=== PATIENT | male | born 1955 | race Caucasian/White ===

== ENCOUNTER 2021-01-18 09:37 | Emergency (ER) | payer OTHER ==
--- NOTE | 2021-01-18 10:09 | ED Physician Documentation ---
PD HPI UPPER EXT INJURY - Stated complaint Stated Complaint: LT SHOULDER PX - Chief complaint Chief Complaint: Ext Problem - History obtained from History obtained from: Patient - Additonal information Additional information: He has had 2 months of worsening left shoulder pain. He may have fallen before it started he does not really remember. It seemed to get worse when he got his Covid shot and expected it would be transient but it has been persistent since then, almost 2 months ago. Pain is worse at night and hurts to move in certain directions. He is right-handed though. Review of Systems Constitutional: denies: Fever, Chills Nose: denies: Rhinorrhea / runny nose, Congestion Throat: denies: Sore throat Cardiac: denies: Chest pain / pressure, Palpitations Respiratory: denies: Dyspnea, Cough PD PAST MEDICAL HISTORY - Present Medications Home Medications: Ambulatory Orders Medication Instructions Recorded Confirmed Apixaban [Eliquis] 0 mg BID 01/18/21 01/18/21 Celecoxib [CeleBREX] 100 mg PO DAILY 01/18/21 01/18/21 Cholecalciferol [Vitamin D3] 1,000 unit DAILY 01/18/21 01/18/21 HYDROcod/ACETAM 5/325 [[facility] 5/325] 1 - 2 tab PO Q6H PRN #15 tablet 01/18/21 Isosorbide Mononitrate [Isosorbide 1 tab DAILY 01/18/21 01/18/21 Mononitrate ER] Lisinopril [Zestril] 20 mg PO DAILY 01/18/21 01/18/21 Metoprolol Succinate [Toprol Xl] 100 mg PO DAILY 01/18/21 01/18/21 Omeprazole 40 mg PO DAILY 01/18/21 01/18/21 Rosuvastatin Calcium [Crestor] 40 mg PO DAILY 01/18/21 01/18/21 traZODone [Desyrel] 50 mg DAILY 01/18/21 01/18/21 - Allergies Allergies/Adverse Reactions: Allergies Allergy/AdvReac Type Severity Reaction Status Date / Time No Known Drug Allergies Allergy Verified 01/18/21 09:45 PD ED PE NORMAL - Vitals Vital signs reviewed: Yes - General General: Alert and oriented X 3, No acute distress - HEENT HEENT: PERRL, EOMI - Neck Neck: No bony TTP - Extremities Extremities: Other (Left shoulder is nontender, he can only abduct to about 80 degrees before significant pain. He has pain with forced external rotation and with supraspinatus testing. No deformity or redness.) - Neuro Neuro: Alert and oriented X 3, Normal speech Results - Vitals Vitals: Vital Signs - 24 hr 01/18/21 09:42 Temperature 36.4 C L Heart Rate 69 Respiratory 16 Rate Blood Pressure 135/78 H O2 Saturation 97 Oxygen O2 Source Room air - Rads (name of study) Left shoulder x-ray Radiology: EMP read contemporaneously (Calcific tendinitis of the rotator cuff, old clavicular fracture.) PD MEDICAL DECISION MAKING - ED course ED course: 65-year-old gentleman with apparent rotator cuff injury or arthropathy of the left shoulder. He has a sling at home and was given exercises to do at home to prevent frozen shoulder. I am prescribing a short course of short-acting opioid pain medication for this patient. I have reviewed the patients [employer] and no concerning findings were noted. I have discussed that the opioids are for short term therapy only, and will not be refilled from the ED. Departure - Departure Disposition: Home, Self Care Clinical Impression: Rotator cuff arthropathy of left shoulder Condition: Good Instructions: Exercise Shoulder Pendulum, ED Tendinitis Rotator Cuff Follow-Up: [facility] [Provider Group] Prescriptions: HYDROcod/ACETAM 5/325 [[facility] 5/325] 1 - 2 tab PO Q6H PRN #15 tablet PRN Reason: Pain Comments: You can wear the sling as needed, but you need to come out of it a few times a day to do range of motion exercises. Return for new or worsening symptoms. Follow-up with your orthopedic clinic, call for an appointment. I am prescribing a short course of narcotic pain medication for you. These are potentially dangerous and addictive medications that should be used carefully. These medications may constipate you. Take an axmf-dtr-yidowsd stool softener (docusate) twice daily with plenty of water while taking these medications. If you go 24 hours without a bowel movement, take [id number] miralax, per package instructions. Do not drink or drive while taking these medications. If you received narcotic or sedating medications while in the emergency depar tment, do not drive for 24 hours. Store this medication in a safe, secure place and out of reach of children. It is a violation of federal law to give or sell this medication to another person or to use in a manner other than prescribed. The ED will not refill narcotic prescriptions, including prescriptions lost or stolen. To dispose of unwanted medications: 1. [facility] [address] in [place] has a medication drop box. They accept prescription medications (in pill form) Saturday through Saturday 9:00 a.m. to 5:00 p.m. 2. [facility] accepts prescription medications (in pill form only) for disposal year round. Call for more information. 3. Contact the [facility] for the next [facility] sponsored prescription drug collection event. , [phone], or [phone]; Note that many narcotic pain relievers also contain Tylenol/acetaminophen. Please ensure that your total dose of acetaminophen from all sources does not exceed 3 g (3000 mg) per day.
--- NOTE | 2021-01-18 10:35 | XRAY Report ---
PROCEDURE: Shoulder 3 View LT INDICATIONS: shoulder pain/injury TECHNIQUE: 3 views of the shoulder were acquired. COMPARISON: None. FINDINGS: Bones: There is a old distal clavicular shaft fracture. No acute fractures or dislocations. No susp icious bony lesions. Visualized ribs appear intact. Soft tissues: Calcific density over the humeral head suggests rotator cuff calcific tendinitis. IMPRESSION: 1. No acute fracture or dislocation. 2. Old left distal clavicular shaft fracture. 3. Rotator cuff calcific tendinitis.. Reviewed by: Funmilayo Perea MD on 01/18/2021 10:33 AM PDT Approved by: Funmilayo Perea MD on 01/18/2021 10:33 AM PDT Station ID: [id number]
[2021-01-18 10:58] VITALS: BP 107/59
== END 2021-01-18 11:00 | disposition home or self-care (01) ==
LOC: ED 09:37
DX: M12.812 Other specific arthropathies, not elsewhere classified, left shoulder (principal)
CPT/HCPCS: 99283; 99284

== ENCOUNTER 2021-03-16 11:15 | Outpatient (CLI) | payer OTHER ==
--- NOTE | 2021-03-16 17:08 | XRAY Report ---
PROCEDURE: Shoulder 3 View LT INDICATIONS: L SHOULDER PX TECHNIQUE: 4 views of the shoulder were acquired. COMPARISON: None. FINDINGS: Bones: No acute fractures or dislocations. Old healed mid to distal left clavicular shaft fracture i s seen. Moderate acromioclavicular joint osteoarthritic changes are noted. Mild to moderate glenohum eral joint osteophytic changes also seen. No suspicious bony lesions. Visualized ribs appear intact. Soft tissues: Small calcifications are noted adjacent to greater tuberosity of humeral head suggestiv e of calcific tendinitis. IMPRESSION: 1. No acute shoulder fracture or dislocation. Old healed mid to distal left clavicular shaft fracture . 2. 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 3. Suggestion of calcific tendinitis involving distal rotator cuff tendons. Reviewed by: Aguilar Last MD on 03/16/2021 5:07 PM PDT Approved by: Aguilar Last MD on 03/16/2021 5:07 PM PDT Station ID: [id number]
== END 2021-03-16 23:59 | disposition home or self-care (01) ==
LOC: DI.N 11:15
PROVIDERS: ATTEND Physician Assistant
DX: S42.002D Fracture of unspecified part of left clavicle, subsequent encounter for fracture with routine healing (principal); M19.012 Primary osteoarthritis, left shoulder; R93.6 Abnormal findings on diagnostic imaging of limbs; R93.89 Abnormal findings on diagnostic imaging of other specified body structures

== ENCOUNTER 2021-04-10 14:11 | Outpatient (CLI) | payer OTHER ==
--- NOTE | 2021-04-11 09:26 | MRI Report ---
PROCEDURE: Shoulder LT W/O INDICATIONS: INJURY OF MUSCLE/TENDON OF LT ROTATOR CUFF TECHNIQUE: Noncontrast oblique coronal T2 fast spin echo with fat saturation, oblique sagittal T1 spin echo and T2 fast spin echo with fat saturation, axial T1 spin echo and T2 fast spin echo with fat saturation t hrough the shoulder. COMPARISON: X-ray left shoulder, 03/16/2021. FINDINGS: Image quality: There are motion artifacts. Rotator cuff: There is partial-thickness tear of the supraspinatus and infraspinatus tendons involvin g both articular and bursal surface. There is subscapularis tendinitis. No rotator cuff muscle atrop hy on sagittal images. Bones and bursae: There is an old left ventricular shaft fracture. No bone marrow contusions or fract ures. Moderate acromioclavicular and glenohumeral joint degeneration. The acromion demonstrates conv entional anatomy, without an os acromiale. Small acromioclavicular and glenohumeral joint effusions. There is a small amount of subcoracoid fluid consistent with bursitis. Capsule and soft tissues: Degenerative labral fraying. In the absence of intra-articular contrast, th e glenohumeral ligaments appear intact. The long head of the biceps tendon demonstrates normal locat ion and morphology. The rotator interval appears normal, without fibrosis. The coracohumeral ligame nt is normal in thickness. IMPRESSION: 1. Partial-thickness tear of the supraspinatus and infraspinatus tendons. 2. Subscapularis tendinitis. 3. Moderate acromioclavicular and glenohumeral joint degeneration. 4. Mild subcoracoid bursitis. 5. Degenerative labral fraying. 6. Old healed clavicular shaft fracture. Reviewed by: Funmilayo Perea MD on 04/11/2021 9:25 AM PDT Approved by: Funmilayo Perea MD on 04/11/2021 9:25 AM PDT Station ID: [id number]
== END 2021-04-10 14:12 | disposition home or self-care (01) ==
LOC: DI 14:11
PROVIDERS: ATTEND Physician Assistant
DX: M75.112 Incomplete rotator cuff tear or rupture of left shoulder, not specified as traumatic (principal); M75.82 Other shoulder lesions, left shoulder; M19.012 Primary osteoarthritis, left shoulder; M75.52 Bursitis of left shoulder; S42.022D Displaced fracture of shaft of left clavicle, subsequent encounter for fracture with routine healing

== ENCOUNTER 2023-01-24 14:26 | Emergency (ER) | payer MEDICARE, OTHER ==
[2023-01-24] MEDS ORDERED: TETANUS/DIPHTHERIA/PERTUSSIS 0.5 ML SYRINGE IM ONE (14:46)
[2023-01-24 14:47] VITALS: BP 130/85
[2023-01-24] MEDS ORDERED: lidocaine 1% 20 ML MDV SUBQ STA (14:50)
--- OUTSIDE RECORDS SUMMARY | 2023-01-24 15:14 | EXTERNAL MEDICAL SUMMARY RPT | Continuity of Care Document ---
Author Name Unknown Address [address] [place] [address] Phone Organization [facility] Address [address] [place] [address] Phone Care Team Providers Care Adjunct Instructor In Economics Name Role Phone Robert Holliday Unavailable Unavailable Medications date description facility 2022-10-30 00:00 [facility] 2022-10-30 00:00 [facility] Results/Labs test date author facility value unit interpretation Result panel 1 (unknown) (no date) (unknown) (unknown) (no value) (units unknown) (unknown) (unknown) (no date) (unknown) (unknown) 10/27/18 [Hist ory Confirmed 10/30/22] (units unknown) (unknown) (unknown) (no date) (unknown) (unknown) 10/30/22 (units unknown) (unknown) (unknown) (no date) (unknown) (unknown) 10/30/22] (units unknown) (unknown) (unknown) (no date) (unknown) (unknown) 01/26/21 [Hist ory Confirmed 10/30/22] (units unknown) (unknown) (unknown) (no date) (unknown) (unknown) 05/13/18 [Hist ory Confirmed 10/30/22] (units unknown) (unknown) (unknown) (no date) (unknown) (unknown) [id number] (units unknown) (unknown) (unknown) (no date) (unknown) (unknown) AAA (abdominal aortic aneurysm) (units unknown) (unknown) (unknown) (no date) (unknown) (unknown) Age/Sex: 67 / M Date of Service: (units unknown) (unknown) (unknown) (no date) (unknown) (unknown) Allergies (units unknown) (unknown) (unknown) (no date) (unknown) (unknown) [place] [id number] (units unknown) (unknown) (unknown) (no date) (unknown) (unknown) Anesthesia (units unknown) (unknown) (unknown) (no date) (unknown) (unknown) Attending Dr: Robert Holliday MD (units unknown) (unknown) (unknown) (no date) (unknown) (unknown) Bedridden (units unknown) (unknown) (unknown) (no date) (unknown) (unknown) Brother Deceas ed Colon cancer (units unknown) (unknown) (unknown) (no date) (unknown) (unknown) Brother Stroke (unit s unknown) (unknown) (unknown) (no date) (unknown) (unknown) Chronic back pain (u nits unknown) (unknown) (unknown) (no date) (unknown) (unknown) Confirmed 10/30/22] (units unknown) (unknown) (unknown) (no date) (unknown) (unknown) : 6 Acct:[id number] (units unknown) (unknown) (unknown) (no date) (unknown) (unknown) Dept at . (units unknown) (unknown) (unknown) (no date) (unknown) (unknown) Diabetes mellitus (u nits unknown) (unknown) (unknown) (no date) (unknown) (unknown) Diabetes type 2, controlled (units unknown) (unknown) (unknown) (no date) (unknown) (unknown) Documented By: Robert Holliday MD 10/30/22 1029 (units unknown) (unknown) (unknown) (no date) (unknown) (unknown) Draft (units unknown) (unknown) (unknown) (no date) (unknown) (unknown) Dry skin (units unknown) (unknown) (unknown) (no date) (unknown) (unknown) Family History (units unknown) (unknown) (unknown) (no date) (unknown) (unknown) Father d Oat cell carcinoma (units unknown) (unknown) (unknown) (no date) (unknown) (unknown) [facility] (units unknown) (unknown) (unknown) (no date) (unknown) (unknown) GERD (gastroesophageal reflux disease) (units unknown) (unknown) (unknown) (no date) (unknown) (unknown) General Health Check In (units unknown) (unknown) (unknown) (no date) (unknown) (unknown) H/O endovascul ar stent graft for abdominal aortic aneurysm (units unknown) (unknown) (unknown) (no date) (unknown) (unknown) Hearing loss (units unknown) (unknown) (unknown) (no date) (unknown) (unknown) History of vasu k surgery (units unknown) (unknown) (unknown) (no date) (unknown) (unknown) History of mita ulder surgery (units unknown) (unknown) (unknown) (no date) (unknown) (unknown) Hyperlipidemia (unit s unknown) (unknown) (unknown) (no date) (unknown) (unknown) Hypertension (units unknown) (unknown) (unknown) (no date) (unknown) (unknown) Intake Note: (units unknown) (unknown) (unknown) (no date) (unknown) (unknown) Intake perform ed by: Honey Maxwell (units unknown) (unknown) (unknown) (no date) (unknown) (unknown) Intake (units unknown) (unknown) (unknown) (no date) (unknown) (unknown) Intake- Comfort al Staff (units unknown) (unknown) (unknown) (no date) (unknown) (unknown) Internal Medic ine Office Visit (units unknown) (unknown) (unknown) (no date) (unknown) (unknown) LS: 01/26/21 (units unknown) (unknown) (unknown) (no date) (unknown) (unknown) Labs - LD: 10/23/22. ( units unknown) (unknown) (unknown) (no date) (unknown) (unknown) Loc: [facility] (units unknown) (unknown) (unknown) (no date) (unknown) (unknown) Lumbar spine pain (u nits unknown) (unknown) (unknown) (no date) (unknown) (unknown) Medical Histor y (Updated 04/02/19 @ 00:00 by ) (units unknown) (unknown) (unknown) (no date) (unknown) (unknown) Medications (units unknown) (unknown) (unknown) (no date) (unknown) (unknown) Mother Diabete s mellitus (units unknown) (unknown) (unknown) (no date) (unknown) (unknown) No Known Drug Allergies Allergy (Verified 10/30/22 10:31) (units unknown) (unknown) (unknown) (no date) (unknown) (unknown) Obstructive sl eep apnea (units unknown) (unknown) (unknown) (no date) (unknown) (unknown) PFSH (units unknown) (unknown) (unknown) (no date) (unknown) (unknown) Patient: Rge Perez MR#: [id number] (units unknown) (unknown) (unknown) (no date) (unknown) (unknown) Peripheral vas cular disease (units unknown) (unknown) (unknown) (no date) (unknown) (unknown) Reason For Visit (un its unknown) (unknown) (unknown) (no date) (unknown) (unknown) Recurrent sinusitis (units unknown) (unknown) (unknown) (no date) (unknown) (unknown) Review/Discuss. (uni ts unknown) (unknown) (unknown) (no date) (unknown) (unknown) S/P aorto-bife moral bypass surgery () (units unknown) (unknown) (unknown) (no date) (unknown) (unknown) S/P cholecystectomy (units unknown) (unknown) (unknown) (no date) (unknown) (unknown) Signed By: (units unknown) (unknown) (unknown) (no date) (unknown) (unknown) Smoking Status : Current every day smoker (Vaping daily ) (units unknown) (unknown) (unknown) (no date) (unknown) (unknown) Surgical Histo ry (units unknown) (unknown) (unknown) (no date) (unknown) (unknown) This note may have been all or partially generated using voice recognition (units unknown) (unknown) (unknown) (no date) (unknown) (unknown) Tobacco + Subs tance Use (units unknown) (unknown) (unknown) (no date) (unknown) (unknown) Tobacco Status (unit s unknown) (unknown) (unknown) (no date) (unknown) (unknown) Visit Reasons: f/u on labs and health in general (units unknown) (unknown) (unknown) (no date) (unknown) (unknown) [THC CREAM] to pical ##0 05/14/17 [History Confirmed 10/30/22] (units unknown) (unknown) (unknown) (no date) (unknown) (unknown) apixaban 5 mg tablet (Eliquis) 5 mg PO BID 01/26/21 [History Confirmed 10/30/22] (units unknown) (unknown) (unknown) (no date) (unknown) (unknown) aspirin 81 mg tablet,delayed release (Adult Low Dose Aspirin) 81 mg PO DAILY (units unknown) (unknown) (unknown) (no date) (unknown) (unknown) cholecalcifero l (vitamin D3) 25 mcg (1,000 unit) capsule 1,000 unit PO DAILY (units unknown) (unknown) (unknown) (no date) (unknown) (unknown) cilostazol 100 mg tablet 100 mg PO ONCE 01/26/21 [History Confirmed 10/30/22] (units unknown) (unknown) (unknown) (no date) (unknown) (unknown) have occurred. If there are any questions, please contact the Medical Records (units unknown) (unknown) (unknown) (no date) (unknown) (unknown) isosorbide mononitrate 60 mg tablet,extended release 24 hr 60 mg PO DAILY (units unknown) (unknown) (unknown) (no date) (unknown) (unknown) lisinopril 20 mg tablet 20 mg PO DAILY 01/26/21 [History Confirmed 10/30/22] (units unknown) (unknown) (unknown) (no date) (unknown) (unknown) may occur. Occasional wrong-word or 'sound-alike' substitutions may have (units unknown) (unknown) (unknown) (no date) (unknown) (unknown) metoprolol suc cinate 100 mg tablet,extended release 24 hr 100 mg PO DAILY (units unknown) (unknown) (unknown) (no date) (unknown) (unknown) multivitamin 1 tab PO DAILY 10/27/18 [History Confirmed 10/30/22] (units unknown) (unknown) (unknown) (no date) (unknown) (unknown) occurred due t o the inherent limitations of voice recognition software. Please (units unknown) (unknown) (unknown) (no date) (unknown) (unknown) omeprazole 20 mg capsule,delayed release 20 mg PO DAILY 01/26/21 [History (units unknown) (unknown) (unknown) (no date) (unknown) (unknown) read the note carefully and recognize, using context, where these substitutions (units unknown) (unknown) (unknown) (no date) (unknown) (unknown) rosuvastatin 4 0 mg tablet 40 mg PO DAILY 01/26/21 [History Confirmed 10/30/22] (units unknown) (unknown) (unknown) (no date) (unknown) (unknown) software. 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 (units unknown) (unknown) (unknown) (no date) (unknown) (unknown) trazodone 50 m g tablet 50 mg PO BEDTIME PRN 10/27/18 [History Confirmed (units unknown) (unknown) Result panel 2 (unknown) (no date) (unknown) (unknown) (no value) (units unknown) (unknown) (unknown) (no date) (unknown) (unknown) 10/27/18 [Hist ory Confirmed 10/30/22] (units unknown) (unknown) (unknown) (no date) (unknown) (unknown) 10/30/22 (units unknown) (unknown) (unknown) (no date) (unknown) (unknown) 10/30/22] (units unknown) (unknown) (unknown) (no date) (unknown) (unknown) 01/26/21 [Hist ory Confirmed 10/30/22] (units unknown) (unknown) (unknown) (no date) (unknown) (unknown) 05/13/18 [Hist ory Confirmed 10/30/22] (units unknown) (unknown) (unknown) (no date) (unknown) (unknown) 10:42 (units unknown) (unknown) (unknown) (no date) (unknown) (unknown) [id number] (units unknown) (unknown) (unknown) (no date) (unknown) (unknown) AAA (abdominal aortic aneurysm) (units unknown) (unknown) (unknown) (no date) (unknown) (unknown) Age/Sex: 67 / M Date of Service: (units unknown) (unknown) (unknown) (no date) (unknown) (unknown) Allergies (units unknown) (unknown) (unknown) (no date) (unknown) (unknown) [place], [place] [address] (units unknown) (unknown) (unknown) (no date) (unknown) (unknown) Anesthesia (units unknown) (unknown) (unknown) (no date) (unknown) (unknown) Attending Dr: Robert Holliday MD (units unknown) (unknown) (unknown) (no date) (unknown) (unknown) BMI 26.6 (units unknown) (unknown) (unknown) (no date) (unknown) (unknown) BP 122/74 (units unknown) (unknown) (unknown) (no date) (unknown) (unknown) Bedridden (units unknown) (unknown) (unknown) (no date) (unknown) (unknown) Blood Pressure Location Lt brachial (units unknown) (unknown) (unknown) (no date) (unknown) (unknown) Brother Deceas ed Colon cancer (units unknown) (unknown) (unknown) (no date) (unknown) (unknown) Brother Stroke (unit s unknown) (unknown) (unknown) (no date) (unknown) (unknown) Chronic back pain (u nits unknown) (unknown) (unknown) (no date) (unknown) (unknown) Confirmed 10/30/22] (units unknown) (unknown) (unknown) (no date) (unknown) (unknown) Continous back pain. (units unknown) (unknown) (unknown) (no date) (unknown) (unknown) : 6 Acct:[id number] (units unknown) (unknown) (unknown) (no date) (unknown) (unknown) Dept at . (units unknown) (unknown) (unknown) (no date) (unknown) (unknown) Diabetes mellitus (u nits unknown) (unknown) (unknown) (no date) (unknown) (unknown) Diabetes type 2, controlled (units unknown) (unknown) (unknown) (no date) (unknown) (unknown) Documented By: Robert Holliday MD 10/30/22 1029 (units unknown) (unknown) (unknown) (no date) (unknown) (unknown) Draft (units unknown) (unknown) (unknown) (no date) (unknown) (unknown) Dry skin (units unknown) (unknown) (unknown) (no date) (unknown) (unknown) Family History (units unknown) (unknown) (unknown) (no date) (unknown) (unknown) Father d Oat cell carcinoma (units unknown) (unknown) (unknown) (no date) (unknown) (unknown) [facility] (units unknown) (unknown) (unknown) (no date) (unknown) (unknown) GERD (gastroesophageal reflux disease) (units unknown) (unknown) (unknown) (no date) (unknown) (unknown) General Health Check In (units unknown) (unknown) (unknown) (no date) (unknown) (unknown) H/O endovascul ar stent graft for abdominal aortic aneurysm (units unknown) (unknown) (unknown) (no date) (unknown) (unknown) Hearing loss (units unknown) (unknown) (unknown) (no date) (unknown) (unknown) Height 6 ft 2 in (un its unknown) (unknown) (unknown) (no date) (unknown) (unknown) History of vasu k surgery (units unknown) (unknown) (unknown) (no date) (unknown) (unknown) History of mita ulder surgery (units unknown) (unknown) (unknown) (no date) (unknown) (unknown) Hyperlipidemia (unit s unknown) (unknown) (unknown) (no date) (unknown) (unknown) Hypertension (units unknown) (unknown) (unknown) (no date) (unknown) (unknown) Intake Note: (units unknown) (unknown) (unknown) (no date) (unknown) (unknown) Intake perform ed by: Honey Maxwell (units unknown) (unknown) (unknown) (no date) (unknown) (unknown) Intake (units unknown) (unknown) (unknown) (no date) (unknown) (unknown) Intake- Comfort al Staff (units unknown) (unknown) (unknown) (no date) (unknown) (unknown) Internal Medic ine Office Visit (units unknown) (unknown) (unknown) (no date) (unknown) (unknown) LS: 01/26/21 (units unknown) (unknown) (unknown) (no date) (unknown) (unknown) Labs - LD: 10/23/22. ( units unknown) (unknown) (unknown) (no date) (unknown) (unknown) Legs are 'jump y' - unsure what it could be from. (units unknown) (unknown) (unknown) (no date) (unknown) (unknown) Loc: [facility] (units unknown) (unknown) (unknown) (no date) (unknown) (unknown) Lumbar spine pain (u nits unknown) (unknown) (unknown) (no date) (unknown) (unknown) Medical Histor y (Updated 04/02/19 @ 00:00 by ) (units unknown) (unknown) (unknown) (no date) (unknown) (unknown) Medications (units unknown) (unknown) (unknown) (no date) (unknown) (unknown) Meds UTD. Stat es he needs refill for THC Cream? (units unknown) (unknown) (unknown) (no date) (unknown) (unknown) Mother Diabete s mellitus (units unknown) (unknown) (unknown) (no date) (unknown) (unknown) No Known Drug Allergies Allergy (Verified 10/30/22 10:31) (units unknown) (unknown) (unknown) (no date) (unknown) (unknown) Obstructive sl eep apnea (units unknown) (unknown) (unknown) (no date) (unknown) (unknown) Oxygen Deliver y Method room air (units unknown) (unknown) (unknown) (no date) (unknown) (unknown) PFSH (units unknown) (unknown) (unknown) (no date) (unknown) (unknown) Patient: Reg Perez MR#: [id number] (units unknown) (unknown) (unknown) (no date) (unknown) (unknown) Peripheral vas cular disease (units unknown) (unknown) (unknown) (no date) (unknown) (unknown) Position Sitting (un its unknown) (unknown) (unknown) (no date) (unknown) (unknown) Pulse 60 (units unknown) (unknown) (unknown) (no date) (unknown) (unknown) Pulse Oximetry (%) 97 (units unknown) (unknown) (unknown) (no date) (unknown) (unknown) Pulse Source Monitor (units unknown) (unknown) (unknown) (no date) (unknown) (unknown) Reason For Visit (un its unknown) (unknown) (unknown) (no date) (unknown) (unknown) Recurrent sinusitis (units unknown) (unknown) (unknown) (no date) (unknown) (unknown) Review/Discuss. (uni ts unknown) (unknown) (unknown) (no date) (unknown) (unknown) S/P aorto-bife moral bypass surgery (-2017) (units unknown) (unknown) (unknown) (no date) (unknown) (unknown) S/P cholecystectomy (units unknown) (unknown) (unknown) (no date) (unknown) (unknown) Signed By: (units unknown) (unknown) (unknown) (no date) (unknown) (unknown) Smoking Status : Current every day smoker (Vaping daily ) (units unknown) (unknown) (unknown) (no date) (unknown) (unknown) Surgical Histo ry (units unknown) (unknown) (unknown) (no date) (unknown) (unknown) This note may have been all or partially generated using voice recognition (units unknown) (unknown) (unknown) (no date) (unknown) (unknown) Tobacco + Subs tance Use (units unknown) (unknown) (unknown) (no date) (unknown) (unknown) Tobacco Status (unit s unknown) (unknown) (unknown) (no date) (unknown) (unknown) Urinary Urgency. (un its unknown) (unknown) (unknown) (no date) (unknown) (unknown) Visit Reasons: f/u on labs and health in general (units unknown) (unknown) (unknown) (no date) (unknown) (unknown) Vitals (units unknown) (unknown) (unknown) (no date) (unknown) (unknown) Weight 208 lb 1 oz ( units unknown) (unknown) (unknown) (no date) (unknown) (unknown) When he wakes up it loosens up but then gets worse at night again. (units unknown) (unknown) (unknown) (no date) (unknown) (unknown) [THC CREAM] to pical ##0 05/14/17 [History Confirmed 10/30/22] (units unknown) (unknown) (unknown) (no date) (unknown) (unknown) apixaban 5 mg tablet (Eliquis) 5 mg PO BID 01/26/21 [History Confirmed 10/30/22] (units unknown) (unknown) (unknown) (no date) (unknown) (unknown) aspirin 81 mg tablet,delayed release (Adult Low Dose Aspirin) 81 mg PO DAILY (units unknown) (unknown) (unknown) (no date) (unknown) (unknown) celecoxib 100 mg capsule (Celebrex) 100 mg PO DAILY 10/30/22 [History Confirmed (units unknown) (unknown) (unknown) (no date) (unknown) (unknown) cholecalcifero l (vitamin D3) 25 mcg (1,000 unit) capsule 1,000 unit PO DAILY (units unknown) (unknown) (unknown) (no date) (unknown) (unknown) cilostazol 100 mg tablet 100 mg PO ONCE 01/26/21 [History Confirmed 10/30/22] (units unknown) (unknown) (unknown) (no date) (unknown) (unknown) have occurred. If there are any questions, please contact the Medical Records (units unknown) (unknown) (unknown) (no date) (unknown) (unknown) isosorbide mononitrate 60 mg tablet,extended release 24 hr 60 mg PO DAILY (units unknown) (unknown) (unknown) (no date) (unknown) (unknown) lisinopril 20 mg tablet 20 mg PO DAILY 01/26/21 [History Confirmed 10/30/22] (units unknown) (unknown) (unknown) (no date) (unknown) (unknown) may occur. Occasional wrong-word or 'sound-alike' substitutions may have (units unknown) (unknown) (unknown) (no date) (unknown) (unknown) metoprolol suc cinate 100 mg tablet,extended release 24 hr 100 mg PO DAILY (units unknown) (unknown) (unknown) (no date) (unknown) (unknown) multivitamin 1 tab PO DAILY 10/27/18 [History Confirmed 10/30/22] (units unknown) (unknown) (unknown) (no date) (unknown) (unknown) occurred due t o the inherent limitations of voice recognition software. Please (units unknown) (unknown) (unknown) (no date) (unknown) (unknown) omeprazole 20 mg capsule,delayed release 20 mg PO DAILY 01/26/21 [History (units unknown) (unknown) (unknown) (no date) (unknown) (unknown) read the note carefully and recognize, using context, where these substitutions (units unknown) (unknown) (unknown) (no date) (unknown) (unknown) rosuvastatin 4 0 mg tablet 40 mg PO DAILY 01/26/21 [History Confirmed 10/30/22] (units unknown) (unknown) (unknown) (no date) (unknown) (unknown) software. Alth ou every effort is made to edit content, optics technical officer errors (units unknown) (unknown) (unknown) (no date) (unknown) (unknown) trazodone 100 mg tablet 100 mg PO BEDTIME 10/30/22 [History Confirmed 10/30/22] (units unknown) (unknown) Result panel 3 (unknown) (no date) (unknown) (unknown) (no value) (units unknown) (unknown) (unknown) (no date) (unknown) (unknown) 10/27/18 [Hist ory Confirmed 10/30/22] (units unknown) (unknown) (unknown) (no date) (unknown) (unknown) 10/30/22 (units unknown) (unknown) (unknown) (no date) (unknown) (unknown) 10/30/22] (units unknown) (unknown) (unknown) (no date) (unknown) (unknown) 01/26/21 [Hist ory Confirmed 10/30/22] (units unknown) (unknown) (unknown) (no date) (unknown) (unknown) 05/13/18 [Hist ory Confirmed 10/30/22] (units unknown) (unknown) (unknown) (no date) (unknown) (unknown) 10:42 (units unknown) (unknown) (unknown) (no date) (unknown) (unknown) [id number] (units unknown) (unknown) (unknown) (no date) (unknown) (unknown) AAA (abdominal aortic aneurysm) (units unknown) (unknown) (unknown) (no date) (unknown) (unknown) Age/Sex: 67 / M Date of Service: (units unknown) (unknown) (unknown) (no date) (unknown) (unknown) Allergies (units unknown) (unknown) (unknown) (no date) (unknown) (unknown) [place] [address] (units unknown) (unknown) (unknown) (no date) (unknown) (unknown) Anesthesia (units unknown) (unknown) (unknown) (no date) (unknown) (unknown) Attending Dr: Robert Holliday MD (units unknown) (unknown) (unknown) (no date) (unknown) (unknown) BMI 26.6 (units unknown) (unknown) (unknown) (no date) (unknown) (unknown) BP 122/74 (units unknown) (unknown) (unknown) (no date) (unknown) (unknown) Bedridden (units unknown) (unknown) (unknown) (no date) (unknown) (unknown) Blood Pressure Location Lt brachial (units unknown) (unknown) (unknown) (no date) (unknown) (unknown) Brother Deceas ed Colon cancer (units unknown) (unknown) (unknown) (no date) (unknown) (unknown) Brother Stroke (unit s unknown) (unknown) (unknown) (no date) (unknown) (unknown) Came in for Beem work last week (units unknown) (unknown) (unknown) (no date) (unknown) (unknown) Chief Complain t: Follow-up diabetes etcetera (units unknown) (unknown) (unknown) (no date) (unknown) (unknown) Chronic back pain (u nits unknown) (unknown) (unknown) (no date) (unknown) (unknown) Confirmed 10/30/22] (units unknown) (unknown) (unknown) (no date) (unknown) (unknown) Continous back pain. (units unknown) (unknown) (unknown) (no date) (unknown) (unknown) : 6 Acct:[id number] (units unknown) (unknown) (unknown) (no date) (unknown) (unknown) Dept at . (units unknown) (unknown) (unknown) (no date) (unknown) (unknown) Diabetes mellitus (u nits unknown) (unknown) (unknown) (no date) (unknown) (unknown) Diabetes type 2, controlled (units unknown) (unknown) (unknown) (no date) (unknown) (unknown) Documented By: Robert Holliday MD 10/30/22 1029 (units unknown) (unknown) (unknown) (no date) (unknown) (unknown) Draft (units unknown) (unknown) (unknown) (no date) (unknown) (unknown) Dry skin (units unknown) (unknown) (unknown) (no date) (unknown) (unknown) Due for colono scopy this year last was in 2018 has a brother with colon cancer (units unknown) (unknown) (unknown) (no date) (unknown) (unknown) Family History (units unknown) (unknown) (unknown) (no date) (unknown) (unknown) Father d Oat cell carcinoma (units unknown) (unknown) (unknown) (no date) (unknown) (unknown) [facility] (units unknown) (unknown) (unknown) (no date) (unknown) (unknown) GERD (gastroesophageal reflux disease) (units unknown) (unknown) (unknown) (no date) (unknown) (unknown) General Health Check In (units unknown) (unknown) (unknown) (no date) (unknown) (unknown) H/O endovascul ar stent graft for abdominal aortic aneurysm (units unknown) (unknown) (unknown) (no date) (unknown) (unknown) Has diabetes b ut off medication on diet only. Had tremendous amount of weight (units unknown) (unknown) (unknown) (no date) (unknown) (unknown) Has no real ne w complaints ongoing back pain issues long-term longstanding (units unknown) (unknown) (unknown) (no date) (unknown) (unknown) Has significan t vascular disease as noted (units unknown) (unknown) (unknown) (no date) (unknown) (unknown) Hearing loss (units unknown) (unknown) (unknown) (no date) (unknown) (unknown) Height 6 ft 2 in (un its unknown) (unknown) (unknown) (no date) (unknown) (unknown) History of vasu k surgery (units unknown) (unknown) (unknown) (no date) (unknown) (unknown) History of mita ulder surgery (units unknown) (unknown) (unknown) (no date) (unknown) (unknown) Hyperlipidemia (unit s unknown) (unknown) (unknown) (no date) (unknown) (unknown) Hypertension (units unknown) (unknown) (unknown) (no date) (unknown) (unknown) Intake Note: (units unknown) (unknown) (unknown) (no date) (unknown) (unknown) Intake perform ed by: Honey Maxwell (units unknown) (unknown) (unknown) (no date) (unknown) (unknown) Intake (units unknown) (unknown) (unknown) (no date) (unknown) (unknown) Intake- Comfort al Staff (units unknown) (unknown) (unknown) (no date) (unknown) (unknown) Internal Medic ine Office Visit (units unknown) (unknown) (unknown) (no date) (unknown) (unknown) LS: 01/26/21 (units unknown) (unknown) (unknown) (no date) (unknown) (unknown) Labs - LD: 10/23/22. ( units unknown) (unknown) (unknown) (no date) (unknown) (unknown) Legs are 'jump y' - unsure what it could be from. (units unknown) (unknown) (unknown) (no date) (unknown) (unknown) Loc: [facility] (units unknown) (unknown) (unknown) (no date) (unknown) (unknown) Lumbar spine pain (u nits unknown) (unknown) (unknown) (no date) (unknown) (unknown) Med list is re viewed and correct per patient today (units unknown) (unknown) (unknown) (no date) (unknown) (unknown) Medical Histor y (Updated 04/02/19 @ 00:00 by ) (units unknown) (unknown) (unknown) (no date) (unknown) (unknown) Medications (units unknown) (unknown) (unknown) (no date) (unknown) (unknown) Meds UTD. Stat es he needs refill for THC Cream? (units unknown) (unknown) (unknown) (no date) (unknown) (unknown) Mother Diabete s mellitus (units unknown) (unknown) (unknown) (no date) (unknown) (unknown) No Known Drug Allergies Allergy (Verified 10/30/22 10:31) (units unknown) (unknown) (unknown) (no date) (unknown) (unknown) No real compla ints issues problems today (units unknown) (unknown) (unknown) (no date) (unknown) (unknown) Note (units unknown) (unknown) (unknown) (no date) (unknown) (unknown) Note: (units unknown) (unknown) (unknown) (no date) (unknown) (unknown) Notes (units unknown) (unknown) (unknown) (no date) (unknown) (unknown) Obstructive sl eep apnea (units unknown) (unknown) (unknown) (no date) (unknown) (unknown) Oxygen Deliver y Method room air (units unknown) (unknown) (unknown) (no date) (unknown) (unknown) PFSH (units unknown) (unknown) (unknown) (no date) (unknown) (unknown) Patient is her e in follow-up. Last seen January 2021. Still getting a lot of his (units unknown) (unknown) (unknown) (no date) (unknown) (unknown) Patient: Reg Perez MR#: [id number] (units unknown) (unknown) (unknown) (no date) (unknown) (unknown) Peripheral vas cular disease (units unknown) (unknown) (unknown) (no date) (unknown) (unknown) Position Sitting (un its unknown) (unknown) (unknown) (no date) (unknown) (unknown) Pulse 60 (units unknown) (unknown) (unknown) (no date) (unknown) (unknown) Pulse Oximetry (%) 97 (units unknown) (unknown) (unknown) (no date) (unknown) (unknown) Pulse Source Monitor (units unknown) (unknown) (unknown) (no date) (unknown) (unknown) Reason For Visit (un its unknown) (unknown) (unknown) (no date) (unknown) (unknown) Recurrent sinusitis (units unknown) (unknown) (unknown) (no date) (unknown) (unknown) Review/Discuss. (uni ts unknown) (unknown) (unknown) (no date) (unknown) (unknown) S/P aorto-bife moral bypass surgery () (units unknown) (unknown) (unknown) (no date) (unknown) (unknown) S/P cholecystectomy (units unknown) (unknown) (unknown) (no date) (unknown) (unknown) Signed By: (units unknown) (unknown) (unknown) (no date) (unknown) (unknown) Smoking Status : Current every day smoker (Vaping daily ) (units unknown) (unknown) (unknown) (no date) (unknown) (unknown) Surgical Histo ry (units unknown) (unknown) (unknown) (no date) (unknown) (unknown) This note may have been all or partially generated using voice recognition (units unknown) (unknown) (unknown) (no date) (unknown) (unknown) Tobacco + Subs tance Use (units unknown) (unknown) (unknown) (no date) (unknown) (unknown) Tobacco Status (unit s unknown) (unknown) (unknown) (no date) (unknown) (unknown) Urinary Urgency. (un its unknown) (unknown) (unknown) (no date) (unknown) (unknown) Visit Reasons: f/u on labs and health in general (units unknown) (unknown) (unknown) (no date) (unknown) (unknown) Vitals (units unknown) (unknown) (unknown) (no date) (unknown) (unknown) Weight 94.376 kg (un its unknown) (unknown) (unknown) (no date) (unknown) (unknown) When he wakes up it loosens up but then gets worse at night again. (units unknown) (unknown) (unknown) (no date) (unknown) (unknown) [THC CREAM] to pical ##0 05/14/17 [History Confirmed 10/30/22] (units unknown) (unknown) (unknown) (no date) (unknown) (unknown) apixaban 5 mg tablet (Eliquis) 5 mg PO BID 01/26/21 [History Confirmed 10/30/22] (units unknown) (unknown) (unknown) (no date) (unknown) (unknown) aspirin 81 mg tablet,delayed release (Adult Low Dose Aspirin) 81 mg PO DAILY (units unknown) (unknown) (unknown) (no date) (unknown) (unknown) care issues (units unknown) (unknown) (unknown) (no date) (unknown) (unknown) celecoxib 100 mg capsule (Celebrex) 100 mg PO DAILY 10/30/22 [History Confirmed (units unknown) (unknown) (unknown) (no date) (unknown) (unknown) cholecalcifero l (vitamin D3) 25 mcg (1,000 unit) capsule 1,000 unit PO DAILY (units unknown) (unknown) (unknown) (no date) (unknown) (unknown) cilostazol 100 mg tablet 100 mg PO ONCE 01/26/21 [History Confirmed 10/30/22] (units unknown) (unknown) (unknown) (no date) (unknown) (unknown) have occurred. If there are any questions, please contact the Medical Records (units unknown) (unknown) (unknown) (no date) (unknown) (unknown) isosorbide mononitrate 60 mg tablet,extended release 24 hr 60 mg PO DAILY (units unknown) (unknown) (unknown) (no date) (unknown) (unknown) lisinopril 20 mg tablet 20 mg PO DAILY 01/26/21 [History Confirmed 10/30/22] (units unknown) (unknown) (unknown) (no date) (unknown) (unknown) loss (units unknown) (unknown) (unknown) (no date) (unknown) (unknown) may occur. Occasional wrong-word or 'sound-alike' substitutions may have (units unknown) (unknown) (unknown) (no date) (unknown) (unknown) [place] but still relying on me I guess for primary (units unknown) (unknown) (unknown) (no date) (unknown) (unknown) metoprolol suc cinate 100 mg tablet,extended release 24 hr 100 mg PO DAILY (units unknown) (unknown) (unknown) (no date) (unknown) (unknown) multivitamin 1 tab PO DAILY 10/27/18 [History Confirmed 10/30/22] (units unknown) (unknown) (unknown) (no date) (unknown) (unknown) occurred due t o the inherent limitations of voice recognition software. Please (units unknown) (unknown) (unknown) (no date) (unknown) (unknown) omeprazole 20 mg capsule,delayed release 20 mg PO DAILY 01/26/21 [History (units unknown) (unknown) (unknown) (no date) (unknown) (unknown) read the note carefully and recognize, using context, where these substitutions (units unknown) (unknown) (unknown) (no date) (unknown) (unknown) rosuvastatin 4 0 mg tablet 40 mg PO DAILY 01/26/21 [History Confirmed 10/30/22] (units unknown) (unknown) (unknown) (no date) (unknown) (unknown) so his interva l is 5 years (units unknown) (unknown) (unknown) (no date) (unknown) (unknown) software. 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 (units unknown) (unknown) (unknown) (no date) (unknown) (unknown) trazodone 100 mg tablet 100 mg PO BEDTIME 10/30/22 [History Confirmed 10/30/22] (units unknown) (unknown) Result panel 4 (unknown) (no date) (unknown) (unknown) (no value) (units unknown) (unknown) (unknown) (no date) (unknown) (unknown) (1) Diabetes t ype 2, controlled: (units unknown) (unknown) (unknown) (no date) (unknown) (unknown) (2) Hypertension: (u nits unknown) (unknown) (unknown) (no date) (unknown) (unknown) (3) Hyperlipidemia: (units unknown) (unknown) (unknown) (no date) (unknown) (unknown) (4) Chronic ba ck pain: (units unknown) (unknown) (unknown) (no date) (unknown) (unknown) 10/27/18 [Hist ory Confirmed 01/26/21] (units unknown) (unknown) (unknown) (no date) (unknown) (unknown) 10/30/22 1100 (units unknown) (unknown) (unknown) (no date) (unknown) (unknown) 10/30/22 (units unknown) (unknown) (unknown) (no date) (unknown) (unknown) 01/26/21 [Hist ory Confirmed 01/26/21] (units unknown) (unknown) (unknown) (no date) (unknown) (unknown) 05/13/18 [Hist ory Confirmed 01/26/21] (units unknown) (unknown) (unknown) (no date) (unknown) (unknown) 10:42 (units unknown) (unknown) (unknown) (no date) (unknown) (unknown) [id number] (units unknown) (unknown) (unknown) (no date) (unknown) (unknown) AAA (abdominal aortic aneurysm) (units unknown) (unknown) (unknown) (no date) (unknown) (unknown) Age/Sex: 67 / M Date of Service: (units unknown) (unknown) (unknown) (no date) (unknown) (unknown) Allergies (units unknown) (unknown) (unknown) (no date) (unknown) (unknown) [place] [id number] (units unknown) (unknown) (unknown) (no date) (unknown) (unknown) Anesthesia (units unknown) (unknown) (unknown) (no date) (unknown) (unknown) Assessment + Plan (u nits unknown) (unknown) (unknown) (no date) (unknown) (unknown) Attending Dr: Robert Holliday MD (units unknown) (unknown) (unknown) (no date) (unknown) (unknown) BMI 26.6 (units unknown) (unknown) (unknown) (no date) (unknown) (unknown) BP 122/74 (units unknown) (unknown) (unknown) (no date) (unknown) (unknown) Back pain loca tion: low back pain Back pain laterality: unspecified (units unknown) (unknown) (unknown) (no date) (unknown) (unknown) Basically he s eems to be doing all right. No other active issues identified. (units unknown) (unknown) (unknown) (no date) (unknown) (unknown) Bedridden (units unknown) (unknown) (unknown) (no date) (unknown) (unknown) Blood Pressure Location Lt brachial (units unknown) (unknown) (unknown) (no date) (unknown) (unknown) Brother Deceas ed Colon cancer (units unknown) (unknown) (unknown) (no date) (unknown) (unknown) Brother Stroke (unit s unknown) (unknown) (unknown) (no date) (unknown) (unknown) Came in for [employer] work last week (units unknown) (unknown) (unknown) (no date) (unknown) (unknown) Chief Complain t: Follow-up diabetes [facility]etera (units unknown) (unknown) (unknown) (no date) (unknown) (unknown) Chronic back pain (u nits unknown) (unknown) (unknown) (no date) (unknown) (unknown) Confirmed 01/26/21] (units unknown) (unknown) (unknown) (no date) (unknown) (unknown) Continous back pain. (units unknown) (unknown) (unknown) (no date) (unknown) (unknown) : 6 Acct:[id number] (units unknown) (unknown) (unknown) (no date) (unknown) (unknown) Dept at . 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 use: without shelter use Diabetes (units unknown) (unknown) (unknown) (no date) (unknown) (unknown) Diabetes mellitus (u nits unknown) (unknown) (unknown) (no date) (unknown) (unknown) Diabetes type 2, controlled (units unknown) (unknown) (unknown) (no date) (unknown) (unknown) Documented By: Robert Holliday MD 10/30/22 1029 (units unknown) (unknown) (unknown) (no date) (unknown) (unknown) Does need a colonoscopy so will refer him to [facility] for same (units unknown) (unknown) (unknown) (no date) (unknown) (unknown) Dry skin (units unknown) (unknown) (unknown) (no date) (unknown) (unknown) Due for colono scopy this year last was in 2018 has a brother with colon cancer (units unknown) (unknown) (unknown) (no date) (unknown) (unknown) Essential (yonis reyes) hypertension (units unknown) (unknown) (unknown) (no date) (unknown) (unknown) Family History (units unknown) (unknown) (unknown) (no date) (unknown) (unknown) Father d Oat cell carcinoma (units unknown) (unknown) (unknown) (no date) (unknown) (unknown) [facility] (units unknown) (unknown) (unknown) (no date) (unknown) (unknown) GERD (gastroesophageal reflux disease) (units unknown) (unknown) (unknown) (no date) (unknown) (unknown) General Health Check In (units unknown) (unknown) (unknown) (no date) (unknown) (unknown) H/O endovascul ar stent graft for abdominal aortic aneurysm (units unknown) (unknown) (unknown) (no date) (unknown) (unknown) Has diabetes b ut off medication on diet only. Had tremendous amount of weight (units unknown) (unknown) (unknown) (no date) (unknown) (unknown) Has no real ne w complaints ongoing back pain issues long-term longstanding (units unknown) (unknown) (unknown) (no date) (unknown) (unknown) Has significan t vascular disease as noted (units unknown) (unknown) (unknown) (no date) (unknown) (unknown) He also had a microalbumin screen performed despite the fact he is on lisinopril (units unknown) (unknown) (unknown) (no date) (unknown) (unknown) Hearing loss (units unknown) (unknown) (unknown) (no date) (unknown) (unknown) Height 6 ft 2 in (un its unknown) (unknown) (unknown) (no date) (unknown) (unknown) History of vasu k surgery (units unknown) (unknown) (unknown) (no date) (unknown) (unknown) History of mita ulder surgery (units unknown) (unknown) (unknown) (no date) (unknown) (unknown) Hyperlipidemia type: mixed hyperlipidemia Qualified Code(s): E78.2 (units unknown) (unknown) (unknown) (no date) (unknown) (unknown) Hyperlipidemia (unit s unknown) (unknown) (unknown) (no date) (unknown) (unknown) Hypertension t ype: primary hypertension Qualified Code(s): I10 (units unknown) (unknown) (unknown) (no date) (unknown) (unknown) Hypertension (units unknown) (unknown) (unknown) (no date) (unknown) (unknown) Intake Note: (units unknown) (unknown) (unknown) (no date) (unknown) (unknown) Intake perform ed by: Honey Maxwell (units unknown) (unknown) (unknown) (no date) (unknown) (unknown) Intake (units unknown) (unknown) (unknown) (no date) (unknown) (unknown) Intake- Comfort al Staff (units unknown) (unknown) (unknown) (no date) (unknown) (unknown) Internal Medic ine Office Visit (units unknown) (unknown) (unknown) (no date) (unknown) (unknown) LS: 01/26/21 (units unknown) (unknown) (unknown) (no date) (unknown) (unknown) Labs - LD: 10/23/22. ( units unknown) (unknown) (unknown) (no date) (unknown) (unknown) Legs are 'jump y' - unsure what it could be from. (units unknown) (unknown) (unknown) (no date) (unknown) (unknown) Loc: [facility] (units unknown) (unknown) (unknown) (no date) (unknown) (unknown) Lumbar spine pain (u nits unknown) (unknown) (unknown) (no date) (unknown) (unknown) M54.50 - Low b ack pain, unspecified; G89.29 - Other chronic pain (units unknown) (unknown) (unknown) (no date) (unknown) (unknown) Med list is re viewed and correct per patient today (units unknown) (unknown) (unknown) (no date) (unknown) (unknown) Medical Histor y (Updated 10/30/22 @ 10:59 by Robert Holliday MD) (units unknown) (unknown) (unknown) (no date) (unknown) (unknown) Medications (units unknown) (unknown) (unknown) (no date) (unknown) (unknown) Meds UTD. Stat es he needs refill for THC Cream? (units unknown) (unknown) (unknown) (no date) (unknown) (unknown) Mixed hyperlipidemia (units unknown) (unknown) (unknown) (no date) (unknown) (unknown) Mother Diabete s mellitus (units unknown) (unknown) (unknown) (no date) (unknown) (unknown) No Known Drug Allergies Allergy (Verified 10/30/22 10:31) (units unknown) (unknown) (unknown) (no date) (unknown) (unknown) No real compla ints issues problems today (units unknown) (unknown) (unknown) (no date) (unknown) (unknown) Note (units unknown) (unknown) (unknown) (no date) (unknown) (unknown) Note: (units unknown) (unknown) (unknown) (no date) (unknown) (unknown) Notes (units unknown) (unknown) (unknown) (no date) (unknown) (unknown) Obstructive sl eep apnea (units unknown) (unknown) (unknown) (no date) (unknown) (unknown) Oxygen Deliver y Method room air (units unknown) (unknown) (unknown) (no date) (unknown) (unknown) PFSH (units unknown) (unknown) (unknown) (no date) (unknown) (unknown) Patient is her e in follow-up. Last seen January 2021. Still getting a lot of his (units unknown) (unknown) (unknown) (no date) (unknown) (unknown) Patient's labs show an A1c of 5.7 which is outstanding. Lipids outstanding we (units unknown) (unknown) (unknown) (no date) (unknown) (unknown) Patient: Reg Perez MR#: [id number] (units unknown) (unknown) (unknown) (no date) (unknown) (unknown) Peripheral vas cular disease (units unknown) (unknown) (unknown) (no date) (unknown) (unknown) Plan to see hi m back in 6 months sooner as needed. (units unknown) (unknown) (unknown) (no date) (unknown) (unknown) Plan (units unknown) (unknown) (unknown) (no date) (unknown) (unknown) Position Sitting (un its unknown) (unknown) (unknown) (no date) (unknown) (unknown) Pulse 60 (units unknown) (unknown) (unknown) (no date) (unknown) (unknown) Pulse Oximetry (%) 97 (units unknown) (unknown) (unknown) (no date) (unknown) (unknown) Pulse Source Monitor (units unknown) (unknown) (unknown) (no date) (unknown) (unknown) Qualifiers: (units unknown) (unknown) (unknown) (no date) (unknown) (unknown) Reason For Visit (un its unknown) (unknown) (unknown) (no date) (unknown) (unknown) Recurrent sinusitis (units unknown) (unknown) (unknown) (no date) (unknown) (unknown) Review/Discuss. (uni ts unknown) (unknown) (unknown) (no date) (unknown) (unknown) S/P aorto-bife moral bypass surgery (-2017) (units unknown) (unknown) (unknown) (no date) (unknown) (unknown) S/P cholecystectomy (units unknown) (unknown) (unknown) (no date) (unknown) (unknown) Sciatica prese nce: unspecified whether sciatica present Qualified Code(s): (units unknown) (unknown) (unknown) (no date) (unknown) (unknown) Signed By: <Electronically signed by Robert Holliday MD> (units unknown) (unknown) (unknown) (no date) (unknown) (unknown) Signed (units unknown) (unknown) (unknown) (no date) (unknown) (unknown) Smoking Status : Current every day smoker (Vaping daily ) (units unknown) (unknown) (unknown) (no date) (unknown) (unknown) Status: Chronic (uni ts unknown) (unknown) (unknown) (no date) (unknown) (unknown) Surgical Histo ry (units unknown) (unknown) (unknown) (no date) (unknown) (unknown) This note may have been all or partially generated using voice recognition (units unknown) (unknown) (unknown) (no date) (unknown) (unknown) Tobacco + Subs tance Use (units unknown) (unknown) (unknown) (no date) (unknown) (unknown) Tobacco Status (unit s unknown) (unknown) (unknown) (no date) (unknown) (unknown) Type 2 diabete s mellitus without complications (units unknown) (unknown) (unknown) (no date) (unknown) (unknown) Urinary Urgency. (un its unknown) (unknown) (unknown) (no date) (unknown) (unknown) Visit Reasons: f/u on labs and health in general (units unknown) (unknown) (unknown) (no date) (unknown) (unknown) Vital signs including blood pressure were acceptable (units unknown) (unknown) (unknown) (no date) (unknown) (unknown) Vitals (units unknown) (unknown) (unknown) (no date) (unknown) (unknown) Weight 94.376 kg (un its unknown) (unknown) (unknown) (no date) (unknown) (unknown) When he wakes up it loosens up but then gets worse at night again. (units unknown) (unknown) (unknown) (no date) (unknown) (unknown) [THC CREAM] to pical ##0 05/14/17 [History Confirmed 01/26/21] (units unknown) (unknown) (unknown) (no date) (unknown) (unknown) and that was n ormal as well. Renal function remains normal with normal (units unknown) (unknown) (unknown) (no date) (unknown) (unknown) apixaban 5 mg tablet (Eliquis) 5 mg PO BID 01/26/21 [History Confirmed 01/26/21] (units unknown) (unknown) (unknown) (no date) (unknown) (unknown) aspirin 81 mg tablet,delayed release (Adult Low Dose Aspirin) 81 mg PO DAILY (units unknown) (unknown) (unknown) (no date) (unknown) (unknown) care issues (units unknown) (unknown) (unknown) (no date) (unknown) (unknown) celecoxib 100 mg capsule (Celebrex) 100 mg PO DAILY 10/30/22 [History] (units unknown) (unknown) (unknown) (no date) (unknown) (unknown) cholecalcifero l (vitamin D3) 25 mcg (1,000 unit) capsule 1,000 unit PO DAILY (units unknown) (unknown) (unknown) (no date) (unknown) (unknown) cilostazol 100 mg tablet 100 mg PO ONCE 01/26/21 [History Confirmed 01/26/21] (units unknown) (unknown) (unknown) (no date) (unknown) (unknown) creatinine BUN (unit s unknown) (unknown) (unknown) (no date) (unknown) (unknown) have occurred. If there are any questions, please contact the Medical Records (units unknown) (unknown) (unknown) (no date) (unknown) (unknown) isosorbide mononitrate 60 mg tablet,extended release 24 hr 60 mg PO DAILY (units unknown) (unknown) (unknown) (no date) (unknown) (unknown) lisinopril 20 mg tablet 20 mg PO DAILY 01/26/21 [History Confirmed 01/26/21] (units unknown) (unknown) (unknown) (no date) (unknown) (unknown) loss (units unknown) (unknown) (unknown) (no date) (unknown) (unknown) low as they sh ould be given his known vascular disease and his ongoing therapy (units unknown) (unknown) (unknown) (no date) (unknown) (unknown) may occur. Occasional wrong-word or 'sound-alike' substitutions may have (units unknown) (unknown) (unknown) (no date) (unknown) (unknown) [place] but still relying on me I guess for primary (units unknown) (unknown) (unknown) (no date) (unknown) (unknown) mellitus complication status: without complication Qualified Code(s): E11.9 (units unknown) (unknown) (unknown) (no date) (unknown) (unknown) metoprolol suc cinate 100 mg tablet,extended release 24 hr 100 mg PO DAILY (units unknown) (unknown) (unknown) (no date) (unknown) (unknown) multivitamin 1 tab PO DAILY 10/27/18 [History Confirmed 01/26/21] (units unknown) (unknown) (unknown) (no date) (unknown) (unknown) occurred due t o the inherent limitations of voice recognition software. Please (units unknown) (unknown) (unknown) (no date) (unknown) (unknown) omeprazole 20 mg capsule,delayed release 20 mg PO DAILY 01/26/21 [History (units unknown) (unknown) (unknown) (no date) (unknown) (unknown) read the note carefully and recognize, using context, where these substitutions (units unknown) (unknown) (unknown) (no date) (unknown) (unknown) rosuvastatin 4 0 mg tablet 40 mg PO DAILY 01/26/21 [History Confirmed 01/26/21] (units unknown) (unknown) (unknown) (no date) (unknown) (unknown) so his interva l is 5 years (units unknown) (unknown) (unknown) (no date) (unknown) (unknown) software. 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 (units unknown) (unknown) (unknown) (no date) (unknown) (unknown) trazodone 100 mg tablet 100 mg PO BEDTIME 10/30/22 [History] (units unknown) (unknown) (unknown) (no date) (unknown) (unknown) with high-dose rosuvastatin (units unknown) (unknown) Result panel 5 (unknown) (no date) (unknown) (unknown) Negative (units unknown) (unknown) (unknown) (no date) (unknown) (unknown) Negative (units unknown) [id number] Result panel 6 (unknown) (no date) (unknown) (unknown) Negative (units unknown) (unknown) (unknown) (no date) (unknown) (unknown) Negative (units unknown) (unknown) Social History date description facility 2022-10-30 00:00 Smokes tobacco daily (finding) [facility] Vital Signs date measurement value units 2022-10-30 00:00 BMI 26.6 kg/m2 2022-10-30 00:00 BP_diastolic 74 mmHg 2022-10-30 00:00 BP_systolic 122 mmHg 2022-10-30 00:00 heart_rate 60 /min 2022-10-30 00:00 height_metric 187.96 cm 2022-10-30 00:00 height_standard 74 in 2022-10-30 00:00 o2_saturation 97 % 2022-10-30 00:00 weight_metric 94.37 kg 2022-10-30 00:00 weight_standard 208.05 lb
--- NOTE | 2023-01-24 15:46 | ED Physician Documentation ---
PD HPI UPPER EXT INJURY - Stated complaint Stated Complaint: LT ARM LAC - Chief complaint Chief Complaint: Laceration - History obtained from History obtained from: Patient - Additonal information Additional information: Patient is a 67-year-old male presenting for evaluation of lacerations to his left hand that occurred just prior to arrival as he was clearing out his weed [place]. He is unsure of his last tetanus. He is on a blood thinner For history of peripheral arterial disease. Denies injuries elsewhere. Review of Systems Constitutional: denies: Fever Cardiac: denies: Chest pain / pressure Respiratory: denies: Dyspnea Skin: reports: Laceration (s) PD PAST MEDICAL HISTORY - Past Medical History Cardiovascular: Hypertension, High cholesterol, Coronary artery disease, Peripheral Vascular Disease - Past Surgical History Past Surgical History: Yes Ortho: Shoulder arthroplasty, Spine surgery Cardiovascular: Coronary stent, Vascular surgery, Fempop bypass, AAA - Present Medications Home Medications: Ambulatory Orders Medication Instructions Recorded Confirmed Apixaban [Eliquis] 0 mg BID 01/18/21 01/18/21 Celecoxib [CeleBREX] 100 mg PO DAILY 01/18/21 01/18/21 Cholecalciferol [Vitamin D3] 1,000 unit DAILY 01/18/21 01/18/21 HYDROcod/ACETAM 5/325 [[place] 5/325] 1 - 2 tab PO Q6H PRN #15 tablet 01/18/21 Isosorbide Mononitrate [Isosorbide 1 tab DAILY 01/18/21 01/18/21 Mononitrate ER] Lisinopril [Zestril] 20 mg PO DAILY 01/18/21 01/18/21 Metoprolol Succinate [Toprol Xl] 100 mg PO DAILY 01/18/21 01/18/21 Omeprazole 40 mg PO DAILY 01/18/21 01/18/21 Rosuvastatin Calcium [Crestor] 40 mg PO DAILY 01/18/21 01/18/21 traZODone [Desyrel] 50 mg DAILY 01/18/21 01/18/21 - Allergies Allergies/Adverse Reactions: Allergies Allergy/AdvReac Type Severity Reaction Status Date / Time No Known Drug Allergies Allergy Verified 01/24/23 14:40 - Social History Does the pt smoke?: Yes Smoking Status: Current every day smoker Does the pt drink ETOH?: No Does the pt have substance abuse?: Yes PD ED PE NORMAL - General General: Alert and oriented X 3, No acute distress, Well developed/nourished - HEENT HEENT: Atraumatic - Neck Neck: Supple, no meningeal sign - Cardiac Cardiac: Strong equal pulses - Respiratory Respiratory: No respiratory distress - Extremities Extremities: No tenderness to palpate, Normal ROM s pain, Other (Laceration to left thumb and left middle digit) - Neuro Neuro: No motor deficit, No sensory deficit Results - Vitals Vitals: Vital Signs - 24 hr 01/24/23 14:36 Temperature 37.0 C Heart Rate 84 Respiratory 16 Rate Blood Pressure 130/85 H O2 Saturation 94 Oxygen O2 Source Room air Procedures - Laceration (location) L thumb Length in cm: 1 Wound type: Curved, Flap, Clean Neurovascular status: Sensory intact, Motor intact, Vascular intact Tendon involvement: Tendon intact Anesthesia: Lidocaine 1% Wound preparation: Hibiclens, Irrigated copiously NS Skin layer closure: Size #-0 - enter number (4), Sutures - enter # (4) Other: Patient tolerated well, No complications, Neurovascular intact, Dressing applied, Tetanus booster given L middle finger Length in cm: 1 Wound type: Curved, Clean Neurovascular status: Sensory intact, Motor intact, Vascular intact Tendon involvement: Tendon intact Anesthesia: Lidocaine 1% Wound preparation: Hibiclens, Irrigated copiously NS Skin layer closure: Size #-0 - enter number (4), Sutures - enter # (2) Other: Patient tolerated well, No complications, Neurovascular intact, Dressing applied, Tetanus booster given PD Medical Decision Making - ED course ED course: Patient presenting for evaluation of lacerations to left hand. He is on a blood thinner. He is unsure of his last tetanus. Lacerations were cleaned and closed with sutures. Patient is advised on wound care instructions as well as need to return for suture removal. He is advised on concerning symptoms to return for. No tendon Or signs of neurovascular injury. Departure - Departure Disposition: 01 Home, Self Care Clinical Impression: Laceration of multiple sites of hand and fingers Qualifiers: Encounter type: initial encounter Laterality: left Qualified Code(s): S61.412A - Laceration without foreign body of left hand, initial encounter Condition: Stable Instructions: ED Laceration Ext Sutr Stap Tape Comments: You were evaluated for lacerations to your left fingers. You have 2 lacerations that were cleaned and closed with a total of 6 stitches.Please keep the dressing that we have applied on for the next 24 hours. After that you can remove the dressing. These should be kept in for a total of 1 week And be removed on January 31. You can return to the emergency department, walk-in clinic or see your PCP to have these removed. Please keep the wounds clean and dry. You are also given a tetanus booster. Return to the emergency department with any worsening symptoms. Discharge Date/Time: 01/24/23 15:57
== END 2023-01-24 15:57 | disposition home or self-care (01) ==
LOC: ED 14:26
DX: S61.012A Laceration without foreign body of left thumb without damage to nail, initial encounter (principal); S61.213A Laceration without foreign body of left middle finger without damage to nail, initial encounter; X58.XXXA Exposure to other specified factors, initial encounter; Y93.H2 Activity, gardening and landscaping; F17.200 Nicotine dependence, unspecified, uncomplicated
CPT/HCPCS: 12001; 90471; 99283

== ENCOUNTER 2023-12-24 16:11 | Emergency (ER) | payer MEDICARE ==
[2023-12-24 16:42] LABS: BASOPHILS # (AUTO) 0.1 10^3/uL (0.0-0.1); BASOPHILS % (AUTO) 1.3 %; EOSINOPHILS # (AUTO) 0.6 10^3/uL (0.0-0.7); EOSINOPHILS % (AUTO) 8.9 %; HCT - HEMATOCRIT 38.1 % (42.0-52.0); HGB - HEMOGLOBIN 11.7 g/dL (14.0-18.0); LYMPHOCYTES # (AUTO) 1.5 10^3/uL (1.5-3.5); LYMPHOCYTES % (AUTO) 21.9 %; MEAN CORPUSCULAR HEMOGLOBIN 25.8 pg (27.0-31.0); MEAN CORPUSCULAR HGB CONC 30.7 g/dL (32.0-36.0); MEAN CORPUSCULAR VOLUME 83.9 fL (80.0-94.0); MEAN PLATELET VOLUME 8.8 fL (7.4-11.4); MONOCYTES # (AUTO) 0.6 10^3/uL (0.0-1.0); MONOCYTES % (AUTO) 8.8 %; NEUTROPHILS # (AUTO) 4.1 10^3/uL (1.5-6.6); NEUTROPHILS % (AUTO) 58.8 %; PLT - PLATELET COUNT 172 10^3/uL (130-450); RED BLOOD COUNT 4.54 10^6/uL (4.70-6.10); RED CELL DISTRIBUTION WIDTH 16.1 % (12.0-15.0)
[2023-12-24 17:12] LABS: ALBUMIN 4.3 g/dL (3.2-5.5); ALBUMIN/GLOBULIN RATIO 1.1 (1.0-2.2); BILIRUBIN,TOTAL 0.3 mg/dL (0.2-1.0); POTASSIUM 4.8 mmol/L (3.5-4.5); TOTAL PROTEIN 8.3 g/dL (6.4-8.9)
--- NOTE | 2023-12-24 18:21 | ED Physician Documentation ---
History of Present Illness - Stated complaint Stated Complaint: VERTIGO - Chief complaint Chief Complaint: Abd Pain - Additonal information Additional information: 68-year-old male presents emergency department for concerns of dizziness and r oom spinning that has been on and off now for about a month. Patient had a right nephrectomy at [facility] about a month and a half ago, states has been overall recovering well no nausea or vomiting no recent fevers or chills.. Patient reports that his daughter has vertigo and he is worried that he may be experiencing some vertigo symptoms himself. He says he gets up first thing in the morning is when he notices it the most feels like the room is spinning around him with nausea vomiting. He has not any blood thinners no neurological concerns or deficits. His main concern is the nausea and vomiting that happens when he is getting dizzy. Throughout the day and it eventually gets better he is not currently experiencing any vertigo or dizziness at this point in time. PD PAST MEDICAL HISTORY - Past Medical History Cardiovascular: Hypertension, High cholesterol, Coronary artery disease, Peripheral Vascular Disease Other Past Medical History: kidney CA - Past Surgical History Past Surgical History: Yes Ortho: Shoulder arthroplasty, Spine surgery Cardiovascular: Coronary stent, Vascular surgery, Fempop bypass, AAA - Present Medications Home Medications: Ambulatory Orders Medication Instructions Recorded Confirmed Apixaban [Eliquis] 0 mg BID 01/18/21 01/18/21 Celecoxib [CeleBREX] 100 mg PO DAILY 01/18/21 01/18/21 Cholecalciferol [Vitamin D3] 1,000 unit DAILY 01/18/21 01/18/21 HYDROcod/ACETAM 5/325 [[place] 5/325] 1 - 2 tab PO Q6H PRN #15 tablet 01/18/21 Isosorbide Mononitrate [Isosorbide 1 tab DAILY 01/18/21 01/18/21 Mononitrate ER] Lisinopril [Zestril] 20 mg PO DAILY 01/18/21 01/18/21 Metoprolol Succinate [Toprol Xl] 100 mg PO DAILY 01/18/21 01/18/21 Omeprazole 40 mg PO DAILY 01/18/21 01/18/21 Rosuvastatin Calcium [Crestor] 40 mg PO DAILY 01/18/21 01/18/21 traZODone [Desyrel] 50 mg DAILY 01/18/21 01/18/21 Meclizine [Antivert] 25 mg PO Q6H #20 tablet 12/24/23 Ondansetron Odt [Zofran Odt] 4 mg TL Q6H PRN #10 tablet 12/24/23 - Allergies Allergies/Adverse Reactions: Allergies Allergy/AdvReac Type Severity Reaction Status Date / Time No Known Drug Allergies Allergy Verified 01/24/23 14:40 - Social History Does the pt smoke?: No Smoking Status: Former smoker Does the pt drink ETOH?: No Does the pt have substance abuse?: Yes PD ED PE NORMAL - Vitals Vital signs reviewed: Yes - General General: Alert and oriented X 3, No acute distress, Well developed/nourished - HEENT HEENT: Atraumatic, PERRL, Moist mucous membranes - Neck Neck: No JVD - Cardiac Cardiac: RRR, No murmur, No gallop, Strong equal pulses - Respiratory Respiratory: No respiratory distress, Clear bilaterally - Derm Derm: Normal color, Warm and dry, No rash - Extremities Extremities: No edema, No calf tenderness / cord - Neuro Neuro: Alert and oriented X 3, 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, No motor deficit, No sensory deficit, Normal speech Eye Opening: Spontaneous Motor: Obeys Commands Verbal: Oriented GCS Score: 15 - Psych Psych: Normal mood, Normal affect Results - Vitals Vitals: Vital Signs - 24 hr 12/24/23 12/24/23 16:17 20:11 Temperature 36.8 C Heart Rate 60 61 Respiratory 18 18 Rate Blood Pressure 139/72 H 173/82 H O2 Saturation 99 100 Oxygen O2 Source Room air - Labs Labs: Laboratory Tests 12/24/23 12/24/23 12/24/23 16:35 16:35 18:50 WBC 7.0 RBC 4.54 L Hgb 11.7 L Hct 38.1 L MCV 83.9 MCH 25.8 L MCHC 30.7 L RDW 16.1 H Plt Count 172 MPV 8.8 Neut # (Auto) 4.1 Lymph # (Auto) 1.5 [place] # (Auto) 0.6 Eos # (Auto) 0.6 Baso # (Auto) 0.1 Absolute Nucleated RBC 0.00 Nucleated RBC % 0.0 Sodium 136 Potassium 4.8 H Chloride 104 Carbon Dioxide 27 Anion Gap 5.0 L BUN 31 H Creatinine 2.0 H Estimated GFR (MDRD) 33 L Glucose 184 H Calcium 10.0 Total Bilirubin 0.3 AST 13 ALT 17 Alkaline Phosphatase 94 Total Protein 8.3 Albumin 4.3 Globulin 4.0 Albumin/Globulin Ratio 1.1 Lipase 84 H Urine Color YELLOW Urine Clarity CLEAR Urine pH 6.0 Ur Specific [place] 1.020 Urine Protein NEGATIVE Urine Glucose (UA) NEGATIVE Urine Ketones NEGATIVE Urine Occult Blood NEGATIVE Urine Nitrite NEGATIVE Urine Bilirubin NEGATIVE Urine Urobilinogen 0.2 (NORMAL) Ur Leukocyte Esterase NEGATIVE Ur Microscopic Review NOT INDICATED Urine Culture Comments NOT INDICATED PD Medical Decision Making - ED course ED course: 68-year-old male presents emergency department for episodes of dizziness that only occur in the morning. I considered central vertigo the patient does not have any bidirectional nystagmus or any nystagmus that I am able to elicit at all. He has no chest pain or shortness of breath no cardiac history. EKG does not show any arrhythmias no ST elevation or depression. Labs are also complete for further evaluation to consider possible electrolyte abnormalities, mild anemia, hemoglobin 11.7, hematocrit 30.1 no significant electrolyte abnormality is mildly elevated potassium of 4.8. BUN is 31 and GFR is 33 given his nephrectomy this is not too surprising I have no previous labs to compare this to. Urinalysis is unremarkable. I do believe that patient is experiencing symptoms of BPPV. I did consider Mnire's but patient has no ear ringing. He has no focal neurological deficits. I do not believe imaging is warranted at this point in time especially given that patient is not experiencing any of the symptoms that he is complaining of. He was given meclizine as well as Zofran here in the emergency department and told to follow-up with primary care provider for further evaluation of this as well as to follow-up with physical therapy [facility] for further evaluation of his BPPV. Strict ER return precautions given prescription of meclizine and Zofran sent to his preferred pharmacy all questions answered patient is safe for discharge. Departure - Departure Disposition: 01 Home, Self Care Clinical Impression: Vertigo Instructions: Meclizine, ED Vertigo Unspecified Prescriptions: Meclizine [Antivert] 25 mg PO Q6H #20 tablet Ondansetron Odt [Zofran Odt] 4 mg TL Q6H PRN #10 tablet PRN Reason: Nausea / Vomiting Comments: Thank you for trusting us with your care. I do believe that you are experiencing vertigo. [place] the facility is called [facility] and their phone number is [phone]. We have given you some meclizine and Zofran here in the emergency department I have also sent a prescription of meclizine and Zofran to your preferred pharmacy you can take the meclizine up to 3 times a day as needed for vertigo symptoms and Zofran with it to prevent against nausea and vomiting. If symptoms get any worse or if you start to develop any other neurological deficits or change please come back to the emergency department Immediately for reevaluation. Forms: PCP List Discharge Date/Time: 12/24/23 20:11
[2023-12-24 18:56] LABS: BILIRUBIN,URINE NEGATIVE (NEGATIVE); GLUCOSE, URINE (UA) NEGATIVE (NEGATIVE); KETONES,URINE (UA) NEGATIVE (NEGATIVE); LEUKOCYTE ESTERASE, URINE NEGATIVE (NEGATIVE); NITRITE,URINE NEGATIVE (NEGATIVE); OCCULT BLOOD,URINE NEGATIVE (NEGATIVE); PROTEIN,URINE NEGATIVE (NEGATIVE); UROBILINOGEN,URINE 0.2 (NORMAL) E.U./dL (NORMAL)
[2023-12-24 19:01] LABS: CLARITY,URINE CLEAR (CLEAR)
[2023-12-24] MEDS: MECLIZINE 12.5 MG TABLET PO STA (19:26)
[2023-12-24] MEDS: ONDANSETRON ODT 4 MG TABLET TL STA (19:27)
[2023-12-24 20:16] VITALS: BP 173/82; O2SAT 100
== END 2023-12-24 20:11 | disposition home or self-care (01) ==
LOC: ED 16:11
DX: R42 Dizziness and giddiness (principal); I10 Essential (primary) hypertension; E78.00 Pure hypercholesterolemia, unspecified; I25.10 Atherosclerotic heart disease of native coronary artery without angina pectoris; I73.9 Peripheral vascular disease, unspecified; Z85.528 Personal history of other malignant neoplasm of kidney; Z79.01 Long term (current) use of anticoagulants; Z79.899 Other long term (current) drug therapy
CPT/HCPCS: 36415; 80053; 81003; 83690; 85025; 93005; 99283; 99284; A9270; Q0162; 81001; 87086